=== PATIENT | male | born 1950 | race Hispanic/Latino ===

== ENCOUNTER 2023-07-01 23:04 | Emergency (ER) | payer OTHER ==
[2023-07-02 00:01] LABS: Absolute Lymphocytes (CBC) 2.1 K/uL (0.7-4.9); Hematocrit 43.2 % (39.6-49.0); Lymphocytes % 24.4 % (15.3-44.8); MCV 89.9 fL (80-100); MPV 8.3 fL (7.6-11.3); Platelets 141 thou/uL (152-406)
[2023-07-02 00:05] LABS: Protime INR 0.98
[2023-07-02 00:21] LABS: Potassium 3.6 mEq/L (3.5-5.1); Troponin High Sensitivity 4.2 pg/mL (<58.9)
[2023-07-02] MEDS ORDERED: ONDANSETRON 4 MG/2 ML VIAL ONE (02:26)
--- NOTE | 2023-07-02 03:13 | ER ---
Nurse's Notes [facility] Name: Sukhdev Chowdhury Jr Age: 73 yrs Sex: Male : 1950 Arrival Date: 07/01/2023 Time: 23:04 Bed 20 Private MD: Diagnosis: Fall on same level, unspecified;Contusion of unspecified part of head, initial encounter Presentation: 07/01 23:22 Chief complaint: EMS states: 73 year old male reports having some beers tonight ha1 approximal four and having a fall. On our arrival he was in his garage sitting on the floor, his blood pressure systolic at 70 and HR at 40. Right after our arrival he started vomiting. we gave 1000 ml of NS and his blood pressure is at 110/62 and HR at 80. Hematoma on the right side of his head. 23:31 Initial Sepsis Screen: Does the patient meet any 2 criteria? No. Patient's initial ha1 sepsis screen is negative. Does the patient have a suspected source of infection? No. Patient's initial sepsis screen is negative. Risk Assessment: Do you want to hurt yourself or someone else? Patient reports no desire to harm self or others. Onset of symptoms was July 01, 2023. 23:31 Acuity: KAI 3 ha1 23:31 Coronavirus screen: Vaccine status: Patient reports receiving the 2nd dose of the covid ha1 vaccine. moderna. 23:31 Ebola Screen: No symptoms or risks identified at this time. ha1 23:31 Method Of Arrival: EMS: [facility] ha1 Triage Assessment: 23:20 General: Appears comfortable, Behavior is calm, cooperative. Pain: Denies pain. Neuro: ha1 Level of Consciousness is awake, alert, obeys commands, Oriented to person, place, time, situation. Cardiovascular: Capillary refill < 3 seconds Patient's skin is warm and dry. Respiratory: Airway is patent Respiratory effort is even, unlabored, Respiratory pattern is regular, symmetrical. GI: Abdomen is flat, non-distended. : No signs and/or symptoms were reported regarding the genitourinary system. Derm: Skin is moist, Skin is normal. Musculoskeletal: Range of motion: limited in right arm and rith led due to previous stroke. Injury Description: Abrasion sustained to right elbow is bleeding. Historical: - Allergies: 23:34 No Known Allergies; ha1 - PMHx: 23:34 Hypercholesterolemia; Cerebrovascular accident; ha1 - PSHx: 23:34 None; ha1 - Immunization history:: Adult Immunizations unknown, Client reports receiving the 2nd dose of the Covid vaccine, Moderna. - Social history:: Smoking status: Patient/guardian denies using tobacco, the patient reports quitting approximately 20 years ago. Screenin:30 [facility] ED Fall Risk Assessment (Adult) History of falling in the last 3 months, ha1 including since admission Yes- single mechanical fall (1 pt) Confusion or Disorientation No (0 pts) Intoxicated or Sedated Yes (3 pts) Impaired Gait No (0 pts) Mobility Assist Device Used No (0 pt) Altered Elimination No (0 pt) Score/Fall Risk Level 3 or more points = High Risk Oriented to surroundings, Maintained a safe environment, Educated pt \T\ family on fall prevention, incl call for assistance when getting out of bed, Hourly rounding (assess needs \T\ fall precautionary measures) done. Abuse screen: Denies threats or abuse. Denies injuries from another. Nutritional screening: No deficits noted. Tuberculosis screening: No symptoms or risk factors identified. Assessment: 23:22 Reassessment: see triage assessment. ha1 07/02 00:17 Reassessment: Patient and/or family updated on plan of care and expected duration. Pain ha1 level reassessed. Patient is alert, oriented x 3, equal unlabored respirations, skin warm/dry/pink. speaking to family member Patient denies pain at this time. 01:00 Reassessment: Patient and/or family updated on plan of care and expected duration. Pain ha1 level reassessed. Patient is alert, oriented x 3, equal unlabored respirations, skin warm/dry/pink. 02:00 Reassessment: Patient and/or family updated on plan of care and expected duration. Pain ha1 level reassessed. Patient is alert, oriented x 3, equal unlabored respirations, skin warm/dry/pink. 03:00 Reassessment: Patient and/or family updated on plan of care and expected duration. Pain ha1 level reassessed. Patient is alert, oriented x 3, equal unlabored respirations, skin warm/dry/pink. Vital Signs: 07/01 23:29 BP 118 / 63; Pulse 83; Resp 18 S; Temp 97.9(O); Pulse Ox 99% on R/A; Weight 71.21 kg; ha1 Height 5 ft. 7 in. ; Pain 0/10; 07/02 00:17 BP 104 / 61; Pulse 84; Resp 18 S; Pulse Ox 98% on R/A; ha1 01:00 BP 101 / 63; Pulse 94; Resp 17 S; Pulse Ox 98% on R/A; ha1 02:00 BP 100 / 74; Pulse 96; Resp 18 S; Pulse Ox 98% on R/A; ha1 02:50 BP 97 / 61; Pulse 95; Resp 17 S; Pulse Ox 96% on R/A; ha1 07/01 23:29 Body Mass Index 24.59 (71.21 kg, 170.18 cm) ha1 07/01 23:29 Pain Scale: Adult ha1 [place] Coma Score: 07/01 23:45 Eye Response: spontaneous(4). Motor Response: obeys commands(6). Verbal Response: cp oriented(5). Total: 15. ED Course: 23:22 Patient arrived in ED. ha1 23:22 Patient has correct armband on for positive identification. Placed in gown. Bed in low ha1 position. Call light in reach. Side rails up X 1. Adult w/ patient. 23:22 Maintain EMS IV. Dressing intact. Good blood return noted. Site clean \T\ dry. Gauge \T\ milan 1 site: 18 jayson left AC. 23:29 Arm band placed on left wrist. ha1 23:31 Triage completed. ha1 23:38 Jered Melo PA is PHCP. cp 23:38 Angie Garces is Attending Physician. cp 23:58 Basic Metabolic Panel Sent. ha1 23:58 CBC with Diff Sent. ha1 23:58 PT-INR Sent. ha1 23:58 Troponin HS Sent. ha1 07/02 00:15 Noa Wan, RUSS is Primary Nurse. ha1 01:29 CT Traumagram (Head C Spine CAP wo con) In Process Unspecified. EDMS 03:31 No provider procedures requiring assistance completed. IV discontinued, intact, ha1 bleeding controlled, No redness/swelling at site. Pressure dressing applied. 03:33 Provided Education on: following up with PCP. ha1 Administered Medications: 02:50 Drug: Ondansetron IVP 4 mg IVP once; over 2 minutes Route: IVP; Site: left antecubital; ha1 03:34 Follow up: Response: No adverse reaction; Nausea is decreased ha1 Medication: 03:32 VIS not applicable for this client. ha1 Outcome: 03:12 Discharge ordered by . neo 03:32 Discharged to home via wheelchair, with family, ha1 03:32 Condition: stable 03:32 Discharge instructions given to patient, family, Instructed on discharge instructions, follow up and referral plans. Demonstrated understanding of instructions, follow-up care, 03:34 Patient left the ED. ha1 Signatures: Dispatcher [employer] EDMS Jered Melo PA PA cp Ayala, Heidy RN RN ha1
--- NOTE | 2023-07-02 03:13 | EDPHYS ---
Physician Documentation [facility] Name: Sukhdev Chowdhury Jr Age: 73 yrs Sex: Male : 1950 Arrival Date: 07/01/2023 Time: 23:04 Bed 20 Private MD: ED Physician Angie Garces HPI: 07/01 23:45 This 73 yrs old Male presents to ER via Unassigned with complaints of Head cp Injury. 23:45 The patient or guardian reports injury. The complaints affect the The complaints affect cp the right side of head. 23:45 Onset: The symptoms/episode began/occurred just prior to arrival. Associated signs and cp symptoms: Pertinent positives: loss of conciousness, nausea, vomiting. 23:45 Patient presents to ED after reported fall while in garage tonight. Patient with cp history of CVA that caused right side weakness. Patient reports losing balance and admits to drinking about 4-6 beers tonight. Patient c/o right side head pain and EMS reports patient vomited after fall. Historical: - Allergies: 23:34 No Known Allergies; ha1 - PMHx: 23:34 Hypercholesterolemia; Cerebrovascular accident; ha1 - PSHx: 23:34 None; ha1 - Immunization history:: Adult Immunizations unknown, Client reports receiving the 2nd dose of the Covid vaccine, Moderna. - Social history:: Smoking status: Patient/guardian denies using tobacco, the patient reports quitting approximately 20 years ago. ROS: 23:50 Constitutional: Negative for body aches, chills, fever, poor PO intake, cp 23:50 Eyes: Negative for injury, pain, redness, and discharge, cp 23:50 Neck: Negative for stiffness, 23:50 Cardiovascular: Negative for chest pain, 23:50 Respiratory: Negative for cough, shortness of breath, wheezing, 23:50 Abdomen/GI: Positive for nausea and vomiting, Negative for diarrhea, constipation, 23:50 Neuro: Negative for altered mental status, 23:50 All other systems are negative, Exam: 23:55 Constitutional: The patient appears in no acute distress, alert, awake, cp non-diaphoretic, non-toxic, well developed, well nourished, 23:55 Head/face: Noted is contusion, that is superficial, of the right episcopalian, right frontal cp area, right temporal area and right zygomatic area, 23:55 Eyes: Periorbital structures: appear normal, Pupils: equal, round, and reactive to light and accomodation, Extraocular movements: intact throughout, Conjunctiva: normal, no exudate, no injection, Lids and lashes: appear normal, bilaterally, 23:55 ENT: External ear(s): are unremarkable, Nose: is normal, Mouth: Lips: moist, Oral mucosa: pink and intact, moist, Posterior pharynx: is normal, airway is patent, no erythema, no exudate, 23:55 Neck: C-spine: C-collar placed in ED, 23:55 Chest/axilla: Inspection: normal, Palpation: is normal, no crepitus, no tenderness, 23:55 Cardiovascular: Rate: normal, Rhythm: regular, Edema: is not appreciated, JVD: is not appreciated, 23:55 Respiratory: the patient does not display signs of respiratory distress, Respirations: normal, no use of accessory muscles, no retractions, Breath sounds: are clear throughout, no decreased breath sounds, no stridor, no wheezing, 23:55 Abdomen/GI: Inspection: abdomen appears normal, Palpation: abdomen is soft and non-tender, in all quadrants, 23:55 Back: vertebral tenderness, is not appreciated, 23:55 Musculoskeletal/extremity: Extremities: the patient is contracted, in the right arm, 23:55 Neuro: Orientation: to person, place \T\ time. Mentation: is normal, weakness noted right arm and right leg from previous CVA, 07/02 00:20 ECG was reviewed by the Attending Physician. cp Vital Signs: 07/01 23:29 BP 118 / 63; Pulse 83; Resp 18 S; Temp 97.9(O); Pulse Ox 99% on R/A; Weight 71.21 kg; ha1 Height 5 ft. 7 in. ; Pain 0/10; 07/02 00:17 BP 104 / 61; Pulse 84; Resp 18 S; Pulse Ox 98% on R/A; ha1 01:00 BP 101 / 63; Pulse 94; Resp 17 S; Pulse Ox 98% on R/A; ha1 02:00 BP 100 / 74; Pulse 96; Resp 18 S; Pulse Ox 98% on R/A; ha1 02:50 BP 97 / 61; Pulse 95; Resp 17 S; Pulse Ox 96% on R/A; 1 07/01 23:29 Body Mass Index 24.59 (71.21 kg, 170.18 cm) [facility] 07/01 23:29 Pain Scale: Adult ha [place] Coma Score: 07/01 23:45 Eye Response: spontaneous(4). Motor Response: obeys commands(6). Verbal Response: cp oriented(5). Total: 15. MDM: 23:38 Patient medically screened. 07/02 00:00 Differential diagnosis: Contusion of Hematoma on Intracranial bleed- Concussion cp cerebral contusion. 03:11 Data reviewed: vital signs, nurses notes, lab test result(s), EKG, radiologic studies, cp CT scan. 03:11 Consideration of Admission/Observation Escalation of care including cp admission/observation considered. I considered the following discharge prescriptions or medication management in the emergency department Medications were administered in the Emergency Department. See MAR. Counseling: I had a detailed discussion with the patient and/or guardian regarding the historical points, exam findings, and any diagnostic results supporting the discharge/admit diagnosis, lab results, radiology results, to return to the emergency department if symptoms worsen or persist or if there are any questions or concerns that arise at home. Special discussion: Based on the patient's history, exam and DX evaluation, there is no indication for emergent intervention or inpatient TX. It is understood by the patient/guardian that if the SXs persist or worsen they need to return immediately for re-evaluation. 07/01 23:44 Order name: ETOH Level; Complete Time: 03:09 07/02 03:09 Interpretation: Reviewed. 07/01 23:44 Order name: Basic Metabolic Panel; Complete Time: 03:09 07/02 03:09 Interpretation: Normal except: GLUC 112; GFR 82. 07/01 23:44 Order name: CBC with Diff; Complete Time: 03:09 07/02 03:10 Interpretation: Normal except: PLT 141. 07/01 23:44 Order name: PT-INR; Complete Time: 03:09 07/01 23:44 Order name: Troponin HS; Complete Time: 03:09 07/01 23:44 Order name: CT Traumagram (Head C Spine CAP wo con) 07/01 23:44 Order name: EKG; Complete Time: 23:44 cp 07/01 23:44 Order name: Cervical Collar; Complete Time: 00:16 cp 07/01 23:44 Order name: Cardiac monitoring; Complete Time: 23:57 cp 07/01 23:44 Order name: EKG - Nurse/Tech; Complete Time: 00:15 cp 07/01 23:44 Order name: IV Saline Lock; Complete Time: 23:57 cp 07/01 23:44 Order name: Labs collected and sent; Complete Time: :58 cp 07/01 23:44 Order name: O2 Per Protocol; Complete Time: :58 cp 07/01 23:44 Order name: O2 Sat Monitoring; Complete Time: :58 cp EC:20 Rate is 85 beats/min. Rhythm is regular. OH interval is normal. QRS interval is normal. cp QT interval is normal. T waves are Inverted in lead aVR. Interpreted by me. Reviewed by me. Administered Medications: 02:50 Drug: Ondansetron IVP 4 mg IVP once; over 2 minutes Route: IVP; Site: left antecubital; ha1 03:34 Follow up: Response: No adverse reaction; Nausea is decreased ha1 Disposition Summary: 07/02/23 03:12 Discharge Ordered Notes: Location: Home cp Problem: new cp Symptoms: have improved cp Condition: Stable cp Diagnosis - Fall on same level, unspecified cp - Contusion of unspecified part of head, initial encounter cp Followup: cp - With: Emergency Department - When: As needed - Reason: Worsening of condition Discharge Instructions: - Discharge Summary Sheet cp - Facial or Scalp Contusion cp - Head Injury, Adult cp - Fall Prevention in the Home, Adult cp Forms: - Medication Reconciliation Form cp - Thank You Letter cp - Antibiotic Education cp - Prescription Opioid Use cp - Patient Portal Instructions cp - Leadership Thank You Letter cp Signatures: Dispatcher [employer] EDMS Jered Melo PA PA cp Noa Wan RN RN ha1 Corrections: (The following items were deleted from the chart) 13:55 07/01 23:45 The complaints affect the cp cp
[2023-07-02 03:39] VITALS: TEMP 97.9
[2023-07-02 03:46] VITALS: BP 97/61; O2SAT 96
--- NOTE | 2023-07-02 17:16 | RAD REPORT ---
EXAM DESCRIPTION: CT - Head C Spine Cap Wo Con - 07/02/2023 6:08 am CLINICAL HISTORY: Fall COMPARISON: None. TECHNIQUE: CT HEAD CERVICAL SPINE CHEST ABDOMEN PELVIS WITHOUT IV CONTRAST on 07/01/2023 11:44 PM CS T This exam was performed according to our departmental dose-optimization program, which includes autom ated exposure control, adjustment of the mA and/or kV according to patient size and/or use of iterati ve reconstruction technique. FINDINGS: Brain: There is no acute hemorrhage, mass effect or midline shift. There is an old lacunar infarct in the left basal ganglia. There is no hydrocephalus. There is no significant volume loss fo r age. The calvarium is intact. Orbits and globes are unremarkable. The paranasal sinuses are clear. Mastoid air cells are clear. Cervical Spine: There is no acute fracture. Alignment is anatomic. There is moderate narrowing of the C6-7 disc. There is an incidental stent within the proximal left i nternal carotid artery. Vertebral body heights are preserved. Soft tissues are unremarkable. Chest: The heart is normal in size. There is no pericardial effusion. Intrathoracic lymph nodes are n ot enlarged. There is no pleural effusion, pleural thickening or pneumothorax. Central airways are patent. Lungs a re clear with no consolidation, mass or interstitial lung disease. Abdomen: Liver is fatty in attenuation. There is no biliary dilatation. Gallbladder is normal in appe arance. The pancreas and spleen are normal in appearance. The adrenal glands and kidneys are unremark able. Abdominal aorta is moderately calcified without aneurysm. There is no free air. There is no retroperi toneal adenopathy. Pelvis: There is no bowel obstruction. Urinary bladder is unremarkable. There is no free fluid. Appen caryn is not well seen. Skeleton: There are no acute osseous findings. No suspicious bony lesions. IMPRESSION: No acute posttraumatic findings. Electronically signed by: Chandler Porter MD 07/02/2023 02:34 AM SHOE STITCHER Due to temporary technical issues with the PACS/Fluency reporting system, reports are being signed by the in house radiologists without review as a courtesy to insure prompt reporting. The interpreting radiologist is fully responsible for the content of the report.
--- NOTE | 2023-07-06 17:38 | EKG ---
Test Date: 2023-07-02 Test Time: 00:11:10 Web Content Director: VERNA MEASUREMENT RESULTS: Intervals: Rate: 89 WA: 152 QRSD: 88 QT: 384 QTc: 467 [place]: P: 70 WA: 152 QRS: 66 T: 61 INTERPRETIVE STATEMENTS: Normal sinus rhythm Normal ECG No previous ECG available for comparison Electronically Signed On 07-06-23 17:26:31 HAND FLESHER by Rogerio Jacobson
== END 2023-07-02 03:34 | disposition home or self-care (01) ==
LOC: ER 23:04
DX: S00.83XA Contusion of other part of head, initial encounter (principal); W18.30XA Fall on same level, unspecified, initial encounter; Z86.73 Personal history of transient ischemic attack (TIA), and cerebral infarction without residual deficits
CPT/HCPCS: 93005; 85025; 80048; 36415; 85610; 84484; 70450; 71250; 72125; 96374; 99284; 82077; J2405